=== PATIENT | male | born 2000 | race Hispanic/Latino ===

== ENCOUNTER 2021-10-16 12:03 | Inpatient (IN) | payer MEDICAID, SELFPAY ==
[~2021-10-16] VITALS: Ht 175.3 cm; Wt 83.0 kg
[2021-10-16 12:41] LABS: HEMATOCRIT 44.7 % (42.0-52.0); HEMOGLOBIN 16.2 g/dl (13.5-17.5); MEAN CORPUSCULAR HEMOGLOBIN 29.5 pg (27.0-33.0); MEAN CORPUSCULAR HGB CONC 36.2 g/dl (32.0-36.5); MEAN CORPUSCULAR VOLUME 81.3 fl (80.0-96.0); PLATELET COUNT, AUTOMATED 326 10^3/uL (150-450); WHITE BLOOD COUNT 12.3 10^3/uL (4.0-10.0)
[2021-10-16 13:12] LABS: BLOOD UREA NITROGEN 13 MG/DL (7-18); CREATININE FOR GFR 0.79 MG/DL (0.70-1.30); GLUCOSE, FASTING 106 MG/DL (70-100)
[2021-10-16 13:13] LABS: ACETAMINOPHEN LEVEL < 2.0 UG/ML (10.0-30.0); ALBUMIN 5.1 GM/DL (3.2-5.2); ALT/SGPT 38 U/L (12-78); BILIRUBIN,DIRECT 0.3 MG/DL (0.0-0.2); BILIRUBIN,TOTAL 1.1 MG/DL (0.2-1.0); CALCIUM LEVEL 10.1 MG/DL (8.5-10.1); CARBON DIOXIDE LEVEL 33 MEQ/L (21-32); CHLORIDE LEVEL 100 MEQ/L (98-107); ETHYL ALCOHOL (ETHANOL) < 0.003 % (0.000-0.010); GLOMERULAR FILTRATION RATE > 60.0 (>60); POTASSIUM SERUM 3.5 MEQ/L (3.5-5.1); SALICYLATE LEVEL 2.7 MG/DL (5.0-30.0); SODIUM LEVEL 139 MEQ/L (136-145); THYROID STIMULATING HORMONE 0.995 uIU/ML (0.358-3.740); TOTAL PROTEIN 8.8 GM/DL (6.4-8.2)
[2021-10-16 13:17] LABS: RSV AMPLIFICATION NEGATIVE (NEGATIVE)
[2021-10-16] MEDS ORDERED: HOME MED LIST COMPLETE! XX SCH (13:45)
[2021-10-16 14:18] LABS: AMPHETAMINES LEVEL URINE NEGATIVE (NEGATIVE); BARBITURATES URINE NEGATIVE (NEGATIVE); BENZODIAZEPINES URINE NEGATIVE (NEGATIVE); CANNABINOIDS URINE POSITIVE (NEGATIVE); COCAINE METABOLITE URINE NEGATIVE (NEGATIVE); METHADONE URINE NEGATIVE (NEGATIVE); OPIATES URINE NEGATIVE (NEGATIVE); PHENCYCLIDINE URINE NEGATIVE (NEGATIVE)
[2021-10-16] MEDS ORDERED: MAALOX 30 ML SUSP *UDC PO PRN ×2 (17:35→17:40)
[2021-10-16] MEDS ORDERED: ACETAMINOPHEN TAB 650MG DOSE (2X325MG) PO PRN ×2 (17:35→17:40)
[2021-10-16] MEDS ORDERED: MOM 30ML SUSPENSION UDC PO PRN ×2 (17:35→17:40)
[2021-10-16] MEDS ORDERED: traZODone 50 MG TAB PO PRN (17:40)
[2021-10-16] MEDS: traZODone 50 MG TAB PO PRN (20:35)
[2021-10-16] MEDS ORDERED: diphenhydrAMINE 50MG CAP PO ONE (22:50)
[2021-10-16] MEDS ORDERED: LORazepam 2 MG TAB PO ONE (22:50)
[2021-10-17 11:00] VITALS: BP 140/93
[2021-10-17] MEDS ORDERED: BENZTROPINE 1 MG TAB PO PRN (15:45)
[2021-10-17] MEDS ORDERED: NICOTINE 21MG/24HR 1 EA TRANSDERMAL TD PRN (15:45)
[2021-10-17] MEDS: PALIPERIDONE 6 MG ER TAB (INVEGA) PO SCH (21:18)
[2021-10-18 06:22] VITALS: BP 121/72
[2021-10-18 07:29] LABS: CHOLESTEROL RISK RATIO 4.846 (<5)
[2021-10-18] MEDS: OMEGA-3 1000MG CAPSULE PO SCH ×2 (09:00→20:23)
[2021-10-18 18:47] VITALS: BP 145/68
[2021-10-18] MEDS: PALIPERIDONE 6 MG ER TAB (INVEGA) PO SCH (20:23)
[2021-10-18] MEDS: traZODone 50 MG TAB PO PRN (21:54)
[2021-10-19 06:58] VITALS: BP 113/80
[2021-10-19] MEDS: OMEGA-3 1000MG CAPSULE PO SCH ×2 (09:15→20:18)
[2021-10-19 19:43] VITALS: BP 131/79
[2021-10-19] MEDS: traZODone 50 MG TAB PO PRN (20:17)
[2021-10-19] MEDS: PALIPERIDONE 6 MG ER TAB (INVEGA) PO SCH (20:18)
[2021-10-19] MEDS ORDERED: QUEtiapine FUMARATE 25 MG TAB PO ONE (23:00)
[2021-10-20 06:53] VITALS: BP 145/71
[2021-10-20] MEDS: OMEGA-3 1000MG CAPSULE PO SCH ×2 (09:52→20:42)
[2021-10-20 20:15] VITALS: BP 118/76
[2021-10-20] MEDS: PALIPERIDONE 6 MG ER TAB (INVEGA) PO SCH (20:42)
[2021-10-20] MEDS: traZODone 50 MG TAB PO PRN (20:42)
[2021-10-20] MEDS ORDERED: QUEtiapine FUMARATE 50MG TAB PO SCH (21:00)
[2021-10-21 06:33] VITALS: BP 116/73
[2021-10-21] MEDS: OMEGA-3 1000MG CAPSULE PO SCH (08:04)
[2021-10-21] MEDS ORDERED: PALIPERIDONE PALMITATE 234MG/1.5ML INJ (INVEGA)(FREE PSY INPT ONLY) IM SCH (09:00)
[2021-10-21] MEDS ORDERED: QUET50TA4 PO (09:11)
[2021-10-21] MEDS ORDERED: INVE234I IM (09:11)
[2021-10-21] MEDS ORDERED: TRAZ-252 PO (09:11)
[2021-10-21] MEDS ORDERED: NICO21PAT TD (09:11)
[2021-10-21] MEDS ORDERED: PALI1TAB3 PO (09:11)
[2021-10-21] MEDS ORDERED: FISH1CAP26 PO (09:11)
[2021-10-21] MEDS ORDERED: INVE156I IM (09:11)
== END 2021-10-21 13:45 | disposition home or self-care (01) | DRG 750 ==
LOC: M ED 12:03 → M ED INP 17:37 → M PSY 18:14
PROVIDERS: ADMIT Student in an Organized Health Care Education/Training Program; ATTEND Student in an Organized Health Care Education/Training Program
DX: F20.9 Schizophrenia, unspecified (principal); F12.959 Cannabis use, unspecified with psychotic disorder, unspecified; Z78.1 Physical restraint status; Z91.51 Personal history of suicidal behavior; D72.829 Elevated white blood cell count, unspecified; Z91.19 Patient's noncompliance with other medical treatment and regimen; Z20.822 Contact with and (suspected) exposure to COVID-19

== ENCOUNTER 2021-10-29 15:50 | Outpatient (CLI) | payer MEDICAID ==
[~2021-10-29 15:50] MED LIST: FISH1CAP26 PO; INVE156I IM; INVE234I IM; NICO21PAT TD; PALI1TAB3 PO; QUET50TA4 PO; SERO1TAB PO; SERO50TA PO; TRAZ-252 PO
[2021-10-29] MEDS ORDERED: PALIPERIDONE PALMITATE 156MG/1ML INJ(INVEGA)(INFUS/ED OUTPTS) IM ONE (16:00)
[2021-10-29 16:13] VITALS: BP 123/80
== END 2021-10-29 16:25 | disposition home or self-care (01) ==
LOC: M INFU 15:50
PROVIDERS: ATTEND Student in an Organized Health Care Education/Training Program
DX: F32.A Depression, unspecified (principal)
CPT/HCPCS: 96372; J2426

== ENCOUNTER 2022-06-30 11:39 | Inpatient (IN) | payer MEDICAID ==
[~2022-06-30] VITALS: Ht 175.3 cm; Wt 110.0 kg
[2022-06-30] MEDS ORDERED: TRAZ-252 PO (16:31)
[2022-06-30] MEDS ORDERED: HOME MED LIST COMPLETE! XX SCH (16:35)
[2022-06-30 17:33] LABS: HEMATOCRIT 45.3 % (42.0-52.0); HEMOGLOBIN 15.9 g/dl (13.5-17.5); MEAN CORPUSCULAR HEMOGLOBIN 28.9 pg (27.0-33.0); MEAN CORPUSCULAR HGB CONC 35.1 g/dl (32.0-36.5); MEAN CORPUSCULAR VOLUME 82.4 fl (80.0-96.0); PLATELET COUNT, AUTOMATED 316 10^3/uL (150-450); WHITE BLOOD COUNT 7.5 10^3/uL (4.0-10.0)
[2022-06-30 18:00] LABS: ETHYL ALCOHOL (ETHANOL) 0.003 % (0.000-0.010)
[2022-06-30 18:01] LABS: ACETAMINOPHEN LEVEL < 2.0 UG/ML (10.0-20.0)
[2022-06-30 18:02] LABS: ALBUMIN 4.6 G/DL (3.2-5.2); ALKALINE PHOSPHATASE 51 U/L (46-116); ALT/SGPT 49 U/L (7.0-40); AST/SGOT 27 U/L (<34); BILIRUBIN,DIRECT 0.3 MG/DL (<0.4); BILIRUBIN,TOTAL 0.9 MG/DL (0.3-1.2); BLOOD UREA NITROGEN 10 MG/DL (9-23); CALCIUM LEVEL 9.5 MG/DL (8.5-10.1); CARBON DIOXIDE LEVEL 26 MMOL/L (20-31); CHLORIDE LEVEL 100 MMOL/L (98-107); GLOMERULAR FILTRATION RATE > 60.0 (>60); GLUCOSE, FASTING 108 MG/DL (60-100); POTASSIUM SERUM 3.8 MMOL/L (3.5-5.1); SALICYLATE LEVEL < 3.0 MG/DL (<30); SODIUM LEVEL 137 MMOL/L (136-145); TOTAL PROTEIN 8.1 G/DL (5.7-8.2)
[2022-06-30 18:03] LABS: THYROID STIMULATING HORMONE 0.935 uIU/ML (0.55-4.78)
[2022-06-30 18:09] LABS: RSV AMPLIFICATION NEGATIVE (NEGATIVE)
[2022-06-30 19:05] LABS: AMPHETAMINES LEVEL URINE NEGATIVE (NEGATIVE); BARBITURATES URINE NEGATIVE (NEGATIVE); BENZODIAZEPINES URINE NEGATIVE (NEGATIVE); COCAINE METABOLITE URINE NEGATIVE (NEGATIVE); METHADONE URINE NEGATIVE (NEGATIVE); OPIATES URINE NEGATIVE (NEGATIVE); PHENCYCLIDINE URINE NEGATIVE (NEGATIVE)
[2022-06-30 19:14] LABS: CANNABINOIDS URINE POSITIVE (NEGATIVE)
[2022-06-30] MEDS ORDERED: OLANZapine ORAL DISINTEGRATING TAB 5MG PO PRN (20:10)
[2022-06-30] MEDS ORDERED: MOM 30ML SUSPENSION UDC PO PRN (20:10)
[2022-06-30] MEDS ORDERED: ACETAMINOPHEN TAB 650MG DOSE (2X325MG) PO PRN (20:10)
[2022-06-30] MEDS ORDERED: MAALOX 30 ML SUSP *UDC PO PRN (20:10)
[2022-06-30] MEDS: traZODone 50 MG TAB PO PRN (21:33)
[2022-06-30 22:09] VITALS: BP 147/87
[2022-07-01 06:39] VITALS: BP 129/63
[2022-07-01] MEDS: hydrOXYzine 50 MG TAB PO PRN (12:42)
[2022-07-01] MEDS ORDERED: OLANZapine ORAL DISINTEGRATING TAB 5MG PO PRN (12:50)
[2022-07-01] MEDS: PALIPERIDONE 3MG ER TAB (INVEGA) PO SCH (20:09)
[2022-07-01] MEDS: QUEtiapine FUMARATE 100 MG TAB PO SCH (20:09)
[2022-07-02 06:23] VITALS: BP 140/69
[2022-07-02 07:31] LABS: CHOLESTEROL RISK RATIO 3.66 (<5); HDL CHOLESTEROL 41.2 MG/DL (>40); LDL CHOLESTEROL 80.6 MG/DL (<100)
[2022-07-02] MEDS: hydrOXYzine 50 MG TAB PO PRN (13:02)
[2022-07-02 16:17] VITALS: BP 140/77
[2022-07-02] MEDS: QUEtiapine FUMARATE 100 MG TAB PO SCH (21:19)
[2022-07-02] MEDS: PALIPERIDONE 3MG ER TAB (INVEGA) PO SCH (21:19)
[2022-07-02] MEDS: traZODone 50 MG TAB PO PRN (21:19)
[2022-07-03 06:40] VITALS: BP 102/71
[2022-07-03] MEDS: PALIPERIDONE 3MG ER TAB (INVEGA) PO SCH ×2 (10:00→20:07)
[2022-07-03] MEDS ORDERED: INVE234I IM (10:25)
[2022-07-03] MEDS ORDERED: PALI1TAB2 PO (10:25)
[2022-07-03 19:15] VITALS: BP 135/84
[2022-07-03] MEDS: traZODone 50 MG TAB PO PRN (20:07)
[2022-07-03] MEDS: QUEtiapine FUMARATE 100 MG TAB PO SCH (20:07)
[2022-07-04 06:43] VITALS: BP 131/67
[2022-07-04] MEDS: PALIPERIDONE 3MG ER TAB (INVEGA) PO SCH (08:06)
[2022-07-04] MEDS ORDERED: PALIPERIDONE PAL 234MG/1.5ML INJ (INVEGA)(FREE PSY INPT ONLY) IM ONE (11:15)
== END 2022-07-04 13:44 | disposition home or self-care (01) | DRG 750 ==
LOC: M ED 11:39 → M ED INP 20:10 → M PSY 20:58
PROVIDERS: ADMIT Psychiatry & Neurology Psychiatry; ATTEND Psychiatry & Neurology Psychiatry
DX: F20.0 Paranoid schizophrenia (principal); F15.951 Other stimulant use, unspecified with stimulant-induced psychotic disorder with hallucinations; Z91.199 Patient's noncompliance with other medical treatment and regimen due to unspecified reason; Z63.0 Problems in relationship with spouse or partner; Z79.899 Other long term (current) drug therapy; Z20.822 Contact with and (suspected) exposure to COVID-19; F12.10 Cannabis abuse, uncomplicated

== ENCOUNTER 2022-09-29 15:07 | Inpatient (IN) | payer MEDICAID, SELFPAY ==
[~2022-09-29] VITALS: Ht 182.9 cm; Wt 99.3 kg
[~2022-09-29 15:07] MED LIST changes: +PALI1TAB2 PO
[2022-09-29 16:44] LABS: HEMATOCRIT 43.5 % (42.0-52.0); HEMOGLOBIN 15.2 g/dl (13.5-17.5); MEAN CORPUSCULAR HEMOGLOBIN 28.5 pg (27.0-33.0); MEAN CORPUSCULAR HGB CONC 34.9 g/dl (32.0-36.5); MEAN CORPUSCULAR VOLUME 81.6 fl (80.0-96.0); PLATELET COUNT, AUTOMATED 277 10^3/uL (150-450); RED BLOOD COUNT 5.33 10^6/uL (4.30-6.10); WHITE BLOOD COUNT 7.5 10^3/uL (4.0-10.0)
[2022-09-29 17:04] LABS: ETHYL ALCOHOL (ETHANOL) < 0.003 % (0.000-0.010)
[2022-09-29 17:05] LABS: ACETAMINOPHEN LEVEL < 2.0 UG/ML (10.0-20.0)
[2022-09-29 17:06] LABS: ALBUMIN 4.1 G/DL (3.2-5.2); ALKALINE PHOSPHATASE 46 U/L (46-116); ALT/SGPT 39 U/L (7.0-40); AST/SGOT 19 U/L (<34); BILIRUBIN,DIRECT 0.2 MG/DL (<0.4); BILIRUBIN,TOTAL 0.6 MG/DL (0.3-1.2); BLOOD UREA NITROGEN 18 MG/DL (9-23); CALCIUM LEVEL 9.2 MG/DL (8.5-10.1); CARBON DIOXIDE LEVEL 28 MMOL/L (20-31); CHLORIDE LEVEL 102 MMOL/L (98-107); CREATININE FOR GFR 0.62 MG/DL (0.70-1.30); GLOMERULAR FILTRATION RATE > 60.0 (>60); GLUCOSE, FASTING 84 MG/DL (60-100); POTASSIUM SERUM 4.2 MMOL/L (3.5-5.1); SALICYLATE LEVEL < 3.0 MG/DL (<30); SODIUM LEVEL 139 MMOL/L (136-145); THYROID STIMULATING HORMONE 0.683 uIU/ML (0.55-4.78); TOTAL PROTEIN 7.5 G/DL (5.7-8.2)
[2022-09-29 17:11] LABS: AMPHETAMINES LEVEL URINE NEGATIVE (NEGATIVE)
[2022-09-29 17:12] LABS: BARBITURATES URINE NEGATIVE (NEGATIVE); BENZODIAZEPINES URINE NEGATIVE (NEGATIVE); COCAINE METABOLITE URINE NEGATIVE (NEGATIVE); METHADONE URINE NEGATIVE (NEGATIVE); OPIATES URINE NEGATIVE (NEGATIVE); PHENCYCLIDINE URINE NEGATIVE (NEGATIVE)
[2022-09-29 17:16] LABS: CANNABINOIDS URINE POSITIVE (NEGATIVE)
[2022-09-29] MEDS ORDERED: INVE234I IM (21:33)
[2022-09-29] MEDS ORDERED: TRAZ1TAB10 PO (21:33)
[2022-09-29] MEDS ORDERED: PALI1TAB2 PO (21:33)
[2022-09-29] MEDS ORDERED: HOME MED LIST COMPLETE! XX SCH (21:35)
[2022-09-29] MEDS: PALIPERIDONE 3MG ER TAB (INVEGA) PO SCH (22:01)
[2022-09-30] MEDS: PALIPERIDONE 3MG ER TAB (INVEGA) PO SCH ×2 (09:00→20:59)
[2022-10-01] MEDS ORDERED: traZODone 50 MG TAB PO PRN (08:00)
[2022-10-01] MEDS: PALIPERIDONE 3MG ER TAB (INVEGA) PO SCH ×2 (08:56→20:34)
[2022-10-01] MEDS: NICOTINE 21MG/24HR 1 EA TRANSDERMAL TD SCH (09:00)
[2022-10-01 12:13] LABS: RSV AMPLIFICATION NEGATIVE (NEGATIVE)
[2022-10-01 16:24] VITALS: BP 121/76
[2022-10-01] MEDS: traZODone 50 MG TAB PO PRN (20:34)
[2022-10-02 06:29] VITALS: BP 107/56
[2022-10-02 06:47] VITALS: BP 104/55
[2022-10-02] MEDS: PALIPERIDONE 3MG ER TAB (INVEGA) PO SCH ×2 (09:31→20:30)
[2022-10-02] MEDS: NICOTINE 21MG/24HR 1 EA TRANSDERMAL TD SCH (09:32)
[2022-10-02 18:11] VITALS: BP 154/86
[2022-10-02] MEDS: traZODone 50 MG TAB PO PRN (20:30)
[2022-10-02] MEDS: LORazepam 1 MG TAB PO PRN (20:30)
[2022-10-03 06:35] VITALS: BP 119/60
[2022-10-03] MEDS: PALIPERIDONE 3MG ER TAB (INVEGA) PO SCH ×2 (08:52→20:11)
[2022-10-03] MEDS: NICOTINE 21MG/24HR 1 EA TRANSDERMAL TD SCH (08:52)
[2022-10-03 17:53] VITALS: BP 160/80
[2022-10-03] MEDS: traZODone 50 MG TAB PO PRN (20:11)
[2022-10-03] MEDS: LORazepam 1 MG TAB PO PRN (20:12)
[2022-10-04 06:47] VITALS: BP 113/56
[2022-10-04] MEDS: PALIPERIDONE 3MG ER TAB (INVEGA) PO SCH ×2 (09:25→20:52)
[2022-10-04] MEDS: NICOTINE 21MG/24HR 1 EA TRANSDERMAL TD SCH (09:26)
[2022-10-04] MEDS ORDERED: traZODone 100 MG TAB PO PRN (15:15)
[2022-10-04 18:24] VITALS: BP 131/73
[2022-10-04] MEDS: LORazepam 1 MG TAB PO PRN (20:53)
[2022-10-05 06:04] VITALS: BP 120/66
[2022-10-05] MEDS: NICOTINE 21MG/24HR 1 EA TRANSDERMAL TD SCH (09:30)
[2022-10-05] MEDS: PALIPERIDONE 3MG ER TAB (INVEGA) PO SCH ×2 (09:30→19:58)
[2022-10-05] MEDS ORDERED: MIRTAZAPINE 7.5MG PER 1/2 TABLET PO PRN (13:45)
[2022-10-05 16:13] VITALS: BP 137/77
[2022-10-05] MEDS: LORazepam 1 MG TAB PO PRN (19:58)
[2022-10-06] MEDS: PALIPERIDONE 3MG ER TAB (INVEGA) PO SCH (07:48)
[2022-10-06] MEDS: NICOTINE 21MG/24HR 1 EA TRANSDERMAL TD SCH (07:49)
[2022-10-06] MEDS ORDERED: MIRT-10 PO (11:03)
[2022-10-06] MEDS ORDERED: NICO21PAT TD (11:03)
[2022-10-06] MEDS ORDERED: INVE234I IM (11:03)
[2022-10-06] MEDS ORDERED: MIRT1TAB PO (11:13)
[2022-10-06] MEDS ORDERED: PALIPERIDONE PAL 234MG/1.5ML INJ (INVEGA)(FREE PSY INPT ONLY) IM ONE (13:00)
== END 2022-10-06 13:35 | disposition home or self-care (01) | DRG 750 ==
LOC: M ED 15:07 → M ED INP 10-01 12:54 → M PSY 10-01 14:12
PROVIDERS: ADMIT Student in an Organized Health Care Education/Training Program; ATTEND Psychiatry & Neurology Psychiatry
DX: F20.0 Paranoid schizophrenia (principal); F15.94 Other stimulant use, unspecified with stimulant-induced mood disorder; R45.851 Suicidal ideations; R45.850 Homicidal ideations; F12.988 Cannabis use, unspecified with other cannabis-induced disorder; F17.200 Nicotine dependence, unspecified, uncomplicated; Z56.0 Unemployment, unspecified; Z59.00 Homelessness unspecified; Z81.8 Family history of other mental and behavioral disorders; Z20.822 Contact with and (suspected) exposure to COVID-19

== ENCOUNTER → 2023-03-24 | Outpatient (REF) | payer MEDICAID, OTHER ==
[~2023-03-24] MED LIST changes: +MIRT-10 PO; +MIRT1TAB PO; +TRAZ1TAB10 PO
[2023-03-24 17:10] LABS: BASO # 0.1 10^3/uL (0.0-0.2); EOS # 0.3 10^3/uL (0.0-0.5); HEMATOCRIT 44.6 % (42.0-52.0); HEMOGLOBIN 15.4 g/dl (13.5-17.5); LYMPH # 1.9 10^3/uL (1.5-5.0); MEAN CORPUSCULAR HEMOGLOBIN 28.2 pg (27.0-33.0); MEAN CORPUSCULAR HGB CONC 34.5 g/dl (32.0-36.5); MEAN CORPUSCULAR VOLUME 81.5 fl (80.0-96.0); MONO # 0.5 10^3/uL (0.0-0.8); MONO % 7.1 % (2.0-8.0); NEUTROPHILS % 59.3 % (36.0-66.0); PLATELET COUNT, AUTOMATED 295 10^3/uL (150-450); RED BLOOD COUNT 5.47 10^6/uL (4.30-6.10); WHITE BLOOD COUNT 6.7 10^3/uL (4.0-10.0)
[2023-03-24 17:28] LABS: ALBUMIN 4.5 G/DL (3.2-5.2); ALKALINE PHOSPHATASE 49 U/L (46-116); ALT/SGPT 20 U/L (7.0-40); AST/SGOT 11 U/L (<34); BILIRUBIN,TOTAL 0.9 MG/DL (0.3-1.2); BLOOD UREA NITROGEN 12 MG/DL (9-23); CALCIUM LEVEL 9.6 MG/DL (8.5-10.1); CARBON DIOXIDE LEVEL 25 MMOL/L (20-31); CHLORIDE LEVEL 103 MMOL/L (98-107); CHOLESTEROL LEVEL 189 MG/DL (<200); CHOLESTEROL RISK RATIO 5.43 (<5); CREATININE FOR GFR 0.66 MG/DL (0.70-1.30); GLOMERULAR FILTRATION RATE > 60.0 (>60); GLUCOSE, FASTING 81 MG/DL (60-100); HDL CHOLESTEROL 34.8 MG/DL (>40); LDL CHOLESTEROL 95.6 MG/DL (<100); NON-HDL-C 154.2 MG/DL; POTASSIUM SERUM 4.2 MMOL/L (3.5-5.1); SODIUM LEVEL 137 MMOL/L (136-145); THYROID STIMULATING HORMONE 2.119 uIU/ML (0.55-4.78); TOTAL PROTEIN 7.9 G/DL (5.7-8.2); TRIGLYCERIDES LEVEL 293 MG/DL (<150)
[2023-03-24 17:35] LABS: HEMOGLOBIN A1c 4.7 % (4.0-6.0)
== END ==
LOC: M LAB REF 16:08
PROVIDERS: ATTEND Pediatrics
DX: E66.9 Obesity, unspecified (principal)

== ENCOUNTER 2025-04-11 14:41 | Inpatient (IN) | payer MEDICAID, OTHER ==
[~2025-04-11] VITALS: Ht 188 cm; Wt 84.5 kg
[2025-04-11] MEDS: NICOTINE 21 MG/24 HR 1 EA TRANSDERMAL TD ONE (15:32)
[2025-04-11] MEDS: OLANZapine ORAL DISINTEGRATING TAB 5MG PO ONE (15:32)
[2025-04-11 15:52] LABS: PLATELET COUNT, AUTOMATED 303 10^3/uL (150-450)
[2025-04-11 16:18] LABS: AMPHETAMINES LEVEL URINE NEGATIVE (NEGATIVE); BARBITURATES URINE NEGATIVE (NEGATIVE); BENZODIAZEPINES URINE NEGATIVE (NEGATIVE); COCAINE METABOLITE URINE NEGATIVE (NEGATIVE); METHADONE URINE NEGATIVE (NEGATIVE); OPIATES URINE NEGATIVE (NEGATIVE); PHENCYCLIDINE URINE NEGATIVE (NEGATIVE)
[2025-04-11 16:19] LABS: CANNABINOIDS URINE POSITIVE (NEGATIVE)
[2025-04-11 16:22] LABS: ALT/SGPT 13 U/L (7.0-40); AST/SGOT 15 U/L (<34); CALCIUM LEVEL 9.3 MG/DL (8.5-10.1); CARBON DIOXIDE LEVEL 29 MMOL/L (20-31); CHLORIDE LEVEL 102 MMOL/L (98-107); CREATININE FOR GFR 0.63 MG/DL (0.70-1.30); GLOMERULAR FILTRATION RATE > 90.0 (>60); POTASSIUM SERUM 3.9 MMOL/L (3.5-5.1); SALICYLATE LEVEL < 3.0 MG/DL (<30); SODIUM LEVEL 139 MMOL/L (136-145)
[2025-04-11 16:27] LABS: ETHYL ALCOHOL (ETHANOL) < 0.003 % (0.000-0.010)
[2025-04-11] MEDS ORDERED: HOME MED LIST COMPLETE! XX SCH (16:35)
[2025-04-11] MEDS ORDERED: MAALOX 30 ML SUSP *UDC PO PRN (18:35)
[2025-04-11] MEDS ORDERED: ACETAMINOPHEN 325 MG TAB PO PRN (18:35)
[2025-04-11] MEDS ORDERED: MOM 30 ML SUSPENSION UDC PO PRN (18:35)
[2025-04-11] MEDS ORDERED: IBUPROFEN 400 MG TAB PO PRN (18:35)
[2025-04-11 21:15] VITALS: BP 109/66; TEMP 97.5; O2SAT 96
[2025-04-12 06:37] VITALS: BP 129/58; TEMP 97.6; O2SAT 99
[2025-04-12] MEDS: NICOTINE 21 MG/24 HR 1 EA TRANSDERMAL TD SCH (14:48)
[2025-04-12 15:11] VITALS: BP 136/71; TEMP 97.9; O2SAT 98
[2025-04-12] MEDS: LORazepam 1 MG TAB PO PRN (15:36)
[2025-04-12] MEDS: PALIPERIDONE 3MG ER TAB PO SCH (20:28)
[2025-04-13 06:47] VITALS: BP 120/57; TEMP 97.6; O2SAT 98
[2025-04-13 16:28] VITALS: BP 136/77; TEMP 97.5; O2SAT 98
[2025-04-13] MEDS: PALIPERIDONE 6MG ER TAB PO SCH (20:34)
[2025-04-14 06:25] VITALS: BP 106/63; TEMP 96.7; O2SAT 99
[2025-04-14 15:30] VITALS: BP 130/78; TEMP 97.4; O2SAT 98
[2025-04-15 06:49] VITALS: BP 123/80; TEMP 97.8; O2SAT 99
[2025-04-15 15:37] VITALS: BP 152/65; TEMP 97.9; O2SAT 100
[2025-04-15] MEDS: traZODone 50 MG TAB PO PRN (20:10)
[2025-04-16 06:31] VITALS: BP 102/55; TEMP 97.8; O2SAT 97
[2025-04-16] MEDS ORDERED: PALIPERIDONE PAL 234MG/1.5ML INJ (FREE PSY INPT ONLY) IM ONE (09:00)
[2025-04-16] MEDS: PALIPERIDONE PAL 234MG/1.5ML INJ (FREE PSY INPT ONLY) IM ONE (09:44)
[2025-04-16 15:33] VITALS: BP 137/74; TEMP 97.9; O2SAT 100
[2025-04-17 06:32] VITALS: BP 135/76; TEMP 97.2; O2SAT 98
[2025-04-17 15:06] VITALS: BP 129/79; TEMP 97.9; O2SAT 100
[2025-04-18 06:29] VITALS: BP 94/58; TEMP 97.2; O2SAT 98
[2025-04-18 08:11] VITALS: BP 136/71
[2025-04-18] MEDS: HALOPERIDOL 5 MG TAB PO PRN (08:27)
[2025-04-18] MEDS ORDERED: TRAZ-252 PO (08:41)
== END 2025-04-18 11:25 | disposition home or self-care (01) | DRG 750 ==
LOC: M ED 14:41 → M ED INP 18:31 → M PSY 21:05
PROVIDERS: ADMIT Psychiatry & Neurology Neurology; ATTEND Psychiatry & Neurology Neurology
DX: F20.9 Schizophrenia, unspecified (principal); F12.90 Cannabis use, unspecified, uncomplicated; F15.90 Other stimulant use, unspecified, uncomplicated; Z81.8 Family history of other mental and behavioral disorders; Z56.0 Unemployment, unspecified; F17.200 Nicotine dependence, unspecified, uncomplicated

== ENCOUNTER 2025-07-03 21:36 | Emergency (ER) | payer OTHER, MEDICAID ==
[2025-07-03 22:05] VITALS: BP 129/83; TEMP 98.1; O2SAT 98
[2025-07-03 22:32] LABS: PLATELET COUNT, AUTOMATED 390 10^3/uL (150-450)
[2025-07-03 22:43] LABS: BARBITURATES URINE NEGATIVE (NEGATIVE); BENZODIAZEPINES URINE NEGATIVE (NEGATIVE); COCAINE METABOLITE URINE NEGATIVE (NEGATIVE); METHADONE URINE NEGATIVE (NEGATIVE); OPIATES URINE NEGATIVE (NEGATIVE); PHENCYCLIDINE URINE NEGATIVE (NEGATIVE)
[2025-07-03 22:45] LABS: AMPHETAMINES LEVEL URINE POSITIVE (NEGATIVE); CANNABINOIDS URINE POSITIVE (NEGATIVE)
[2025-07-03 22:46] LABS: ETHYL ALCOHOL (ETHANOL) < 0.003 % (0.000-0.010)
[2025-07-03 22:48] LABS: ALT/SGPT 19 U/L (7.0-40); AST/SGOT 18 U/L (<34); CALCIUM LEVEL 9.8 MG/DL (8.5-10.1); CARBON DIOXIDE LEVEL 30 MMOL/L (20-31); CHLORIDE LEVEL 94 MMOL/L (98-107); CREATININE FOR GFR 0.78 MG/DL (0.70-1.30); GLOMERULAR FILTRATION RATE > 90.0 (>60); POTASSIUM SERUM 3.7 MMOL/L (3.5-5.1); SALICYLATE LEVEL < 3.0 MG/DL (<30); SODIUM LEVEL 134 MMOL/L (136-145)
== END 2025-07-03 23:20 | disposition home or self-care (01) ==
LOC: M ED 21:36
DX: R44.0 Auditory hallucinations (principal); J30.2 Other seasonal allergic rhinitis